=== PATIENT | female | born 1980 ===

== ENCOUNTER 2016-10-11 11:32 | Inpatient (IN) | payer BC ==
[2016-10-11] MEDS ORDERED: Sodium Chloride 0.9% 1,000 ML IV STA ×3 (11:55→18:30)
[2016-10-11 12:26] LABS: BASO # 0.1 K/uL (0.0-0.2); BASO % 0.4 % (0.0-2.0); HEMATOCRIT 38.7 % (34.0-47.0); LYMPH # 1.4 K/uL (1.0-4.3); LYMPH % 8.5 % (20.0-40.0); MEAN CORPUSCULAR HEMOGLOBIN 30.1 pg (27.0-31.0); MEAN CORPUSCULAR HGB CONC 33.9 g/dL (33.0-37.0); MEAN PLATELET VOLUME 8.1 fl (7.2-11.7); MONO # 1.7 K/uL (0.0-0.8); MONO % 10.1 % (0.0-10.0); NEUT # 13.6 K/uL (1.8-7.0); PLATELET COUNT 255 K/uL (130-400); RED CELL DISTRIBUTION WIDTH 13.1 % (11.5-14.5); WHITE BLOOD COUNT 16.8 K/uL (4.8-10.8)
[2016-10-11 12:35] LABS: URINE BACTERIA OCC (<OCC); URINE BILIRUBIN NEGATIVE (NEGATIVE); URINE BLOOD SMALL (NEGATIVE); URINE COLOR AMBER (YELLOW); URINE GLUCOSE (UA) NEG (Normal); URINE KETONE 20 mg/dL (NEGATIVE); URINE LEUKOCYTE ESTERASE MOD Leu/uL (Negative); URINE PROTEIN 100 mg/dL (NEGATIVE); URINE UROBILINOGEN 0.2-1.0 mg/dL (0.2-1.0); WBC URINE 274 /hpf (0-5)
[2016-10-11 12:37] LABS: RBC URINE 4 /hpf (0-3)
[2016-10-11 12:41] LABS: ALKALINE PHOSPHATASE 188 U/L (38-126); ALT/SGPT 109 U/L (9-52); AST/SGOT 70 U/L (14-36); BLOOD UREA NITROGEN 10 mg/dl (7-17); CALCIUM 9.2 mg/dL (8.4-10.2); CARBON DIOXIDE 22 mmol/L (22-30); CHLORIDE 105 mmol/L (98-107); GFR AFRICAN-AMERICAN > 60; GLUCOSE,RANDOM 101 mg/dL (65-105); POTASSIUM 3.5 MMOL/L (3.6-5.0); SODIUM 139 mmol/l (132-148); TOTAL PROTEIN 7.9 G/DL (6.3-8.2)
[2016-10-11 12:42] LABS: PARTIAL THROMBOPLASTIN TIME 35.7 Seconds (25.6-37.1)
[2016-10-11 12:50] LABS: VENOUS BLOOD GAS BASE EXCESS -0.7 mmol/L (0.0-2.0); VENOUS BLOOD GAS PCO2 36 mmHg (40-60); VENOUS BLOOD PH 7.42 (7.32-7.43)
[2016-10-11] MEDS ORDERED: Povidone Iodine Topical 10% Sol ONE (12:50)
[2016-10-11] MEDS ORDERED: Lidocaine 1% Inj (20ml) ONE (13:01)
--- NOTE | 2016-10-11 13:13 | ED PDOC ---
HPI: Fever Fever Onset Was: 10/08/16 Past Medical History Vital Signs: Last Vital Signs Temp 103.5 F H 10/11/16 12:15 Pulse 122 H 10/11/16 11:38 Resp 20 10/11/16 11:38 BP 133/71 10/11/16 11:38 Pulse Ox 99 10/11/16 11:38 - Family History Family History: States: Unknown Family Hx - Immunization History Hx Tetanus Toxoid Vaccination: No Hx Influenza Vaccination: No Hx Pneumococcal Vaccination: No - Home Medications Home Medications: Ambulatory Orders Medication Instructions Recorded Ondansetron ODT [Zofran ODT] 1 odt PO BID PRN #6 odt 09/01/13 Phendimetrazine 35 mg PO TID 09/01/13 Sulfamethoxazole/Trimethoprim 1 tab PO BID #14 tab 09/01/13 [Bactrim 400 mg-80 mg] - Allergies Allergies/Adverse Reactions: Allergies Allergy/AdvReac Type Severity Reaction Status Date / Time No Known Allergies Allergy Verified 10/11/16 11:35 - Laboratory Results Result Diagrams: 10/11/16 12:20 10/11/16 12:20 - ECG O2 Sat by Pulse Oximetry: 99 Disposition - Disposition Forms: [employer] (Welsh)
--- NOTE | 2016-10-11 13:17 | ED PDOC ---
HPI: Headache Time Seen by Provider: 10/11/16 11:46 Chief Complaint (Nursing): Fever Chief Complaint (Provider): Fever History Per: Patient History/Exam Limitations: no limitations Onset/Duration Of Symptoms: Days (x 4) Current Symptoms Are (Timing): Still Present Additional Complaint(s): Nette is a 35 y/o female who presents to the ED complaining of neck pain, headache, and fever, ongoing since Thursday. Seen by PMD and given Naprosyn, without relief. Patient then seen at [facility] on and given shot for pain. Also complaining of low back pain, and blurred vision. Denies any associated nausea or vomiting. PMD: Faraz Childress Past Medical History Reviewed: Historical Data, Nursing Documentation, Vital Signs Vital Signs: Last Vital Signs Temp 103.5 F H 10/11/16 12:15 Pulse 122 H 10/11/16 11:38 Resp 20 10/11/16 11:38 BP 133/71 10/11/16 11:38 Pulse Ox 99 10/11/16 11:38 - Medical History PMH: No Chronic Diseases - Surgical History Other surgeries: Hysterectomy - Family History Family History: States: Unknown Family Hx - Social History Current smoker - smoking cessation education provided: No Alcohol: None Drugs: Denies - Immunization History Hx Tetanus Toxoid Vaccination: No Hx Influenza Vaccination: No Hx Pneumococcal Vaccination: No - Home Medications Home Medications: Ambulatory Orders Medication Instructions Recorded Ondansetron ODT [Zofran ODT] 1 odt PO BID PRN #6 odt 09/01/13 Phendimetrazine 35 mg PO TID 09/01/13 Sulfamethoxazole/Trimethoprim 1 tab PO BID #14 tab 09/01/13 [Bactrim 400 mg-80 mg] - Allergies Allergies/Adverse Reactions: Allergies Allergy/AdvReac Type Severity Reaction Status Date / Time No Known Allergies Allergy Verified 10/11/16 11:35 Review of Systems ROS Statement: Except As Marked, All Systems Reviewed And Found Negative Constitutional: Positive for: Fever Eyes: Positive for: Vision Change (blurred vision) Gastrointestinal: Negative for: Nausea, Vomiting Musculoskeletal: Positive for: Neck Pain, Back Pain (low back pain) Neurological: Positive for: Headache Physical Exam - Reviewed Nursing Documentation Reviewed: Yes Vital Signs Reviewed: Yes - Physical Exam Appears: Positive for: Non-toxic, No Acute Distress Head Exam: Positive for: ATRAUMATIC, NORMOCEPHALIC Skin: Positive for: Normal Color, Warm, Dry Eye Exam: Positive for: EOMI, Normal appearance, PERRL Neck: Positive for: Limited ROM (Neck pain with neck movement) Cardiovascular/Chest: Positive for: Tachycardia (regular rhythm) Respiratory: Positive for: Normal Breath Sounds (Lungs clear). Negative for: Respiratory Distress Gastrointestinal/Abdominal: Positive for: Normal Exam, Soft. Negative for: Tenderness Back: Positive for: Normal Inspection. Negative for: L CVA Tenderness, R CVA Tenderness Extremity: Positive for: Normal ROM. Negative for: Pedal Edema, Deformity Neurologic/Psych: Positive for: Alert, Oriented - Laboratory Results Result Diagrams: 10/11/16 12:20 10/11/16 12:20 - ECG O2 Sat by Pulse Oximetry: 99 (RA) Pulse Ox Interpretation: Normal Medical Decision Making Medical Decision Making: Time: 11:55 Initial Impression: Fever, Headache, Meningitis Initial Plan: --Labs --NS IV 1000 ml at 1000 mls/hr --Morphine 2 mg IV --Acetaminophen 650 mg PO --Vancomycin 1 gm IV --Rocephin 2 gm IV --Zovirax 600 mg IV --Pending CT Head and Lumbar Spine w/o contrast --Patient placed in ED-OBS as of 14:00 Scribe Attestation: Documented by Afshan Warren, acting as a scribe for Vira Donnelly MD Provider Scribe Attestation: All medical record entries made by the Scribe were at my direction and personally dictated by me. I have reviewed the chart and agree that the record accurately reflects my personal performance of the history, physical exam, medical decision making, and the department course for this patient. I have also personally directed, reviewed, and agree with the discharge instructions and disposition. Procedures - Additional Procedures Additional Procedures: lumbar puncture (performed with patient sitting, with minimal difficulty. Used 6cc Lidocaine) ED OBSERVATION Date of observation admission: 10/11/16 Time of observation admission: 14:00 - Observation admission statement Patient is being placed in observation because:: Fever, headache - Progress Note Progress Note: 10/11/16 Time: 14:00 --Patient is resting comfortably. Vital signs stable. Time: 14:22 CT Head: FINDINGS: HEMORRHAGE: No acute parenchymal, subarachnoid or extra-axial hemorrhage. BRAIN: No evidence of large acute infarct. Irregular calcification seen along the superior margin right tentorium bordering the occipito parietal watershed zone nonspecific. Rule out post traumatic or post infectious/ inflammatory sequela. VENTRICLES: No evidence of obstructive hydrocephalus CALVARIUM: There are no acute calvarial fractures. PARANASAL SINUSES: Unremarkable as visualized. No significant inflammatory changes. MASTOID AIR CELLS: Unremarkable as visualized. No inflammatory changes. OTHER FINDINGS: None. IMPRESSION: No acute intracranial hemorrhage. Small irregular nonspecific calcification along the right aspect of the tentorium in the right occipital parietal watershed zone nonspecific ; see above discussion for additional details Time: 14:32 CT Lumbar Spine: FINDINGS: Findings: The current study reveals no evidence of acute compression fractures no retropulsed fragments. Vertebral bodies exhibit normal stature is mild levoscoliosis. Facets normally aligned. Mild disc space narrowing seen at the L3-L4 level more so along the anterior disc margin with small broad-based disc bulge ridge complex that results in flattening of the ventral surface of the thecal sac. Central canal is marginal to adequate. Facet joints are slightly hypertrophic and flavum buckled. Exit foramina appear adequate. At the L4-L5 level, there is mild anterior disc space narrowing with central and bilateral (left larger than right) disc herniation that does result in compression of the ventral surface of the thecal sac centrally and to the left more so than right. Facets are mildly hypertrophic and flavum buckled. Exit foramina appear adequate. At the L5-S1 level, there is small broad-based disc bulge ridge complex which appears to reach but does not significantly compress the ventral surfaces of the exiting extra thecal descending S1 nerve roots. Central canal appears adequate. Facets are mildly hypertrophic. Exit foramina are adequate. At the L2-L3 level, there is also minor anterior disc space narrowing with small asymmetric broad disc bulging of the posterior annulus which results in mild compressive effects along the anterolateral borders of thecal sac right greater than left. Central canal appears adequate. Facets are mildly hypertrophic. Exit foramina are also adequate. Assess some vague infiltration changes seen within the posterior inferior perinephric fat right kidney nonspecific. . Additionally, there appears to be mild dilatation of the proximal right ureter with prominence of the surrounding urothelium Clinical correlation with urinalysis recommended. Multiple bilateral ovarian follicular cysts are present. Impression: No acute compression fractures. Multilevel degenerative spondylosis with disc bulging changes at the L2-L3, L3-L4 and L5-S1 levels. There is also a small disc herniation L4-L5 level ; see above discussion for additional details. Some vague infiltration changes seen in the posterior inferior right-sided perinephric fat mild dilatation of proximal right ureter and prominence of the surrounding urothelium. And Correlation with urinalysis recommended to exclude UTI. Time: 15:00 --Labs reviewed, significant for elevated WBC count and WBC in urine Time: 15:30 --Patient is resting comfortably. Vital signs stable. Time: 16:25 --Patient given 2 mg Morphine IV Time: 17:00 --Patient is resting comfortably. Vital signs stable. Time: 17:00 --Lumbar puncture completed Disposition - Clinical Impression Clinical Impression: SIRS (systemic inflammatory response syndrome), UTI (lower urinary tract infection), Headache, Meningitis - Patient ED Disposition Is Patient to be Admitted: Yes - Disposition Disposition Time: 18:46 Condition: STABLE - Pt Status Changed To: Hospital Disposition Of: Inpatient - Admit Certification Admit to Inpatient:: After my assessment, the patient will require hospitalization for at least two midnights. This is because of the severity of symptoms shown, intensity of services needed, and/or the medical risk in this patient being treated as an outpatient. - POA Present On Arrival: None
--- NOTE | 2016-10-11 14:24 | CT ---
PROCEDURE: CT HEAD WITHOUT CONTRAST. HISTORY: SHEPPARD, neck pain, fever COMPARISON: None available. TECHNIQUE: Axial computed tomography images were obtained through the head/brain without intravenous contrast. Radiation dose: Total exam DLP = 930.1 mGy-cm. This CT exam was performed using one or more of the following dose reduction techniques: Automated exposure control, adjustment of the mA and/or kV according to patient size, and/or use of iterative reconstruction technique. FINDINGS: HEMORRHAGE: No acute parenchymal, subarachnoid or extra-axial hemorrhage. BRAIN: No evidence of large acute infarct. Irregular calcification seen along the superior margin right tentorium bordering the occipito parietal watershed zone nonspecific. Rule out post traumatic or post infectious/ inflammatory sequela. VENTRICLES: No evidence of obstructive hydrocephalus CALVARIUM: There are no acute calvarial fractures. PARANASAL SINUSES: Unremarkable as visualized. No significant inflammatory changes. MASTOID AIR CELLS: Unremarkable as visualized. No inflammatory changes. OTHER FINDINGS: None. IMPRESSION: No acute intracranial hemorrhage. Small irregular nonspecific calcification along the right aspect of the tentorium in the right occipital parietal watershed zone nonspecific ; see above discussion for additional details
[2016-10-11 14:35] LABS: NEUTROPHIL 78 % (42-75); TOTAL CELLS COUNTED 100
--- NOTE | 2016-10-11 14:35 | CT ---
PROCEDURE: CT scan lumbar spine 10/11/2016 HISTORY: Low back pain, neck pain, fever COMPARISON: No prior TECHNIQUE: Contiguous helical/ transaxial sections were obtained of the lumbar spine without the use of intravenous contrast. Coronal and sagittal reformatted images were created and reviewed. Radiation dose: Total exam DLP = 1248.56 mGy-cm. This CT exam was performed using one or more of the following dose reduction techniques: Automated exposure control, adjustment of the mA and/or kV according to patient size, and/or use of iterative reconstruction technique. . FINDINGS: Findings: The current study reveals no evidence of acute compression fractures no retropulsed fragments. Vertebral bodies exhibit normal stature is mild levoscoliosis. Facets normally aligned. Mild disc space narrowing seen at the L3-L4 level more so along the anterior disc margin with small broad-based disc bulge ridge complex that results in flattening of the ventral surface of the thecal sac. Central canal is marginal to adequate. Facet joints are slightly hypertrophic and flavum buckled. Exit foramina appear adequate. At the L4-L5 level, there is mild anterior disc space narrowing with central and bilateral (left larger than right) disc herniation that does result in compression of the ventral surface of the thecal sac centrally and to the left more so than right. Facets are mildly hypertrophic and flavum buckled. Exit foramina appear adequate. At the L5-S1 level, there is small broad-based disc bulge ridge complex which appears to reach but does not significantly compress the ventral surfaces of the exiting extra thecal descending S1 nerve roots. Central canal appears adequate. Facets are mildly hypertrophic. Exit foramina are adequate. At the L2-L3 level, there is also minor anterior disc space narrowing with small asymmetric broad disc bulging of the posterior annulus which results in mild compressive effects along the anterolateral borders of thecal sac right greater than left. Central canal appears adequate. Facets are mildly hypertrophic. Exit foramina are also adequate. Assess some vague infiltration changes seen within the posterior inferior perinephric fat right kidney nonspecific. . Additionally, there appears to be mild dilatation of the proximal right ureter with prominence of the surrounding urothelium Clinical correlation with urinalysis recommended. Multiple bilateral ovarian follicular cysts are present. Impression: No acute compression fractures. Multilevel degenerative spondylosis with disc bulging changes at the L2-L3, L3-L4 and L5-S1 levels. There is also a small disc herniation L4-L5 level ; see above discussion for additional details. Some vague infiltration changes seen in the posterior inferior right-sided perinephric fat mild dilatation of proximal right ureter and prominence of the surrounding urothelium. And Correlation with urinalysis recommended to exclude UTI.
[2016-10-11 14:36] LABS: LARGE PLATELETS PRESENT
[2016-10-11 17:21] LABS: FLUID TYPE SPINAL FLUID
[2016-10-11 18:43] LABS: CSF NEUTROPHIL 0 % (0-0)
[2016-10-11] MEDS: Sodium Chloride 0.9% 1,000 ML IV SCH (23:31)
[2016-10-12 08:14] LABS: HEMATOCRIT 30.4 % (34.0-47.0); MEAN CORPUSCULAR HEMOGLOBIN 30.5 pg (27.0-31.0); MEAN CORPUSCULAR HGB CONC 34.3 g/dL (33.0-37.0); RED CELL DISTRIBUTION WIDTH 12.8 % (11.5-14.5); WHITE BLOOD COUNT 12.1 K/uL (4.8-10.8)
[2016-10-12] MEDS: Sodium Chloride 0.9% 1,000 ML IV SCH ×2 (08:15→22:12)
[2016-10-12 08:43] LABS: ALB/GLOB RATIO 0.9 (1.0-2.1); ALKALINE PHOSPHATASE 130 U/L (38-126); ALT/SGPT 76 U/L (9-52); AST/SGOT 41 U/L (14-36); BILIRUBIN,TOTAL 0.6 mg/dl (0.2-1.3); BLOOD UREA NITROGEN 9 mg/dl (7-17); CALCIUM 7.4 mg/dL (8.4-10.2); CARBON DIOXIDE 19 mmol/L (22-30); CHLORIDE 111 mmol/L (98-107); GFR AFRICAN-AMERICAN > 60; GLUCOSE,RANDOM 73 mg/dL (65-105); POTASSIUM 3.3 MMOL/L (3.6-5.0); SODIUM 140 mmol/l (132-148); TOTAL PROTEIN 5.8 G/DL (6.3-8.2)
[2016-10-12] MEDS: Pantoprazole 40 mg EC Tab PO SCH (09:08)
[2016-10-12] MEDS: Acyclovir 500 MG in Sodium Chloride 0.9% 100 ML IVPB SCH (10:00)
[2016-10-12] MEDS: cefTRIAXone 2 GM in Sodium Chloride 0.9% 100 ML IVPB SCH (10:00)
--- NOTE | 2016-10-12 11:23 | CP.PCM.HP ---
History of Present Illness - History of Present Illness History of Present Illness: this is a 35 y/o female admitted for low grade fever headache and neck pains. Past Patient History - Past Medical History & Family History Past Medical History?: No - Past Social History Smoking Status: Never Smoked - CARDIAC Hx Cardiac Disorders: No - PULMONARY Hx Respiratory Disorders: No - NEUROLOGICAL Hx Neurological Disorder: No - HEENT Hx HEENT Problems: No - RENAL Hx Chronic Kidney Disease: No - ENDOCRINE/METABOLIC Hx Endocrine Disorders: No - HEMATOLOGICAL/ONCOLOGICAL Hx Blood Disorders: No - INTEGUMENTARY Hx Dermatological Problems: No - MUSCULOSKELETAL/RHEUMATOLOGICAL Hx Falls: No - GENITOURINARY/GYNECOLOGICAL Hx Genitourinary Disorders: No - PSYCHIATRIC Hx Substance Use: No - SURGICAL HISTORY Hx Hysterectomy: Yes - ANESTHESIA Hx Anesthesia: Yes Hx Anesthesia Reactions: No Meds Allergies/Adverse Reactions: Allergies Allergy/AdvReac Type Severity Reaction Status Date / Time No Known Allergies Allergy Verified 10/11/16 11:35 Results - Vital Signs Recent Vital Signs: Last Vital Signs Temp 100.7 F H 10/12/16 08:57 Pulse 98 H 10/12/16 08:57 Resp 18 10/12/16 08:57 BP 103/71 10/12/16 08:57 Pulse Ox 99 10/12/16 08:57 - Labs Result Diagrams: 10/12/16 06:00 10/12/16 06:00 Labs: Laboratory Results - last 24 hr 10/12/16 10/12/16 06:00 06:00 WBC 12.1 H RBC 3.42 L Hgb 10.4 L D Hct 30.4 L MCV 89.0 MCH 30.5 MCHC 34.3 RDW 12.8 Plt Count 212 Sodium 140 Potassium 3.3 L Chloride 111 H Carbon Dioxide 19 L Anion Gap 13 BUN 9 Creatinine 0.7 Est GFR ( Amer) > 60 Est GFR (Non-Af Amer) > 60 Random Glucose 73 Calcium 7.4 L Total Bilirubin 0.6 AST 41 H D ALT 76 H D Alkaline Phosphatase 130 H D Total Protein 5.8 L Albumin 2.7 L D Globulin 3.1 Albumin/Globulin Ratio 0.9 L
[2016-10-12] MEDS ORDERED: Potassium Chloride 20 mEq ER Tab PO ONE (11:55)
--- NOTE | 2016-10-12 15:00 | CP.PCM.PN ---
Subjective - Date & Time of Evaluation Date of Evaluation: 10/12/16 Time of Evaluation: 15:03 - Subjective Subjective: I D NOTE PATIENT EXAMINED, CHART REVIEWED AWAIT LABS CONTINUE PRESENT RX Objective - Vital Signs/Intake and Output Vital Signs (last 24 hours): Temp Pulse Resp BP Pulse Ox 97.4 F L 101 H 18 100/68 98 10/12/16 13:12 10/12/16 13:12 10/12/16 13:12 10/12/16 13:12 10/12/16 13:12 Intake and Output: 10/12/16 10/12/16 06:59 18:59 Intake Total 700 Balance 700 - Medications Medications: Current Medications Ceftriaxone Sodium 2 gm/ (Sodium Chloride) 100 mls @ 100 mls/hr IVPB DAILY [facility] Last Admin: 10/12/16 10:00 Dose: 100 mls/hr Vancomycin HCl 1 gm/ Sodium (Chloride) 250 mls @ 166.667 mls/hr IVPB DAILY [facility] Last Admin: 10/12/16 09:00 Dose: 166.667 mls/hr Acyclovir 500 mg/ Sodium (Chloride) 100 mls @ 100 mls/hr IVPB DAILY [facility] Last Admin: 10/12/16 10:00 Dose: 100 mls/hr Sodium Chloride (Sodium Chloride 0.9%) 1,000 mls @ 100 mls/hr IV .Q10H [facility] Stop: 10/12/16 22:15 Last Admin: 10/12/16 08:15 Dose: 100 mls/hr Ibuprofen (Motrin Tab) 600 mg PO Q6 PRN PRN Reason: Headache Last Admin: 10/12/16 10:54 Dose: 600 mg Pantoprazole Sodium (Protonix Ec Tab) 40 mg PO DAILY [facility] Last Admin: 10/12/16 09:08 Dose: 40 mg - Labs Labs: 10/12/16 06:00 10/12/16 06:00 PT 12.9 Seconds (9.8-13.1) 10/11/16 12:20 INR 1.3 (0.9-1.2) H 10/11/16 12:20 APTT 35.7 Seconds (25.6-37.1) 10/11/16 12:20
[2016-10-13 07:09] LABS: BASO # 0.1 K/uL (0.0-0.2); BASO % 0.7 % (0.0-2.0); EOS # 0.1 K/uL (0.0-0.7); EOS % 0.9 % (0.0-4.0); HEMATOCRIT 28.2 % (34.0-47.0); LYMPH # 1.9 K/uL (1.0-4.3); LYMPH % 22.1 % (20.0-40.0); MEAN CELL VOLUME 88.5 fl (81.0-99.0); MEAN CORPUSCULAR HEMOGLOBIN 29.6 pg (27.0-31.0); MEAN CORPUSCULAR HGB CONC 33.4 g/dL (33.0-37.0); MEAN PLATELET VOLUME 8.3 fl (7.2-11.7); MONO % 11.5 % (0.0-10.0); NEUT # 5.6 K/uL (1.8-7.0); NEUT % 64.8 % (50.0-75.0); RED CELL DISTRIBUTION WIDTH 13.3 % (11.5-14.5); WHITE BLOOD COUNT 8.7 K/uL (4.8-10.8)
[2016-10-13 07:34] LABS: ALB/GLOB RATIO 0.9 (1.0-2.1); ALKALINE PHOSPHATASE 166 U/L (38-126); ALT/SGPT 85 U/L (9-52); AST/SGOT 65 U/L (14-36); BILIRUBIN,TOTAL 0.3 mg/dl (0.2-1.3); BLOOD UREA NITROGEN 5 mg/dl (7-17); CALCIUM 7.9 mg/dL (8.4-10.2); CARBON DIOXIDE 22 mmol/L (22-30); CHLORIDE 112 mmol/L (98-107); GFR AFRICAN-AMERICAN > 60; GLUCOSE,RANDOM 93 mg/dL (65-105); POTASSIUM 3.2 MMOL/L (3.6-5.0); SODIUM 141 mmol/l (132-148); TOTAL PROTEIN 5.8 G/DL (6.3-8.2)
[2016-10-13] MEDS: cefTRIAXone 2 GM in Sodium Chloride 0.9% 100 ML IVPB SCH (09:10)
[2016-10-13] MEDS: Pantoprazole 40 mg EC Tab PO SCH (09:10)
[2016-10-13] MEDS: Acyclovir 500 MG in Sodium Chloride 0.9% 100 ML IVPB SCH (09:12)
[2016-10-13 10:36] LABS: IRON 11 ug/dL (37-170)
[2016-10-13 10:38] LABS: HEPATITIS A TOTAL ANTIBODY POS (NEGATIVE)
[2016-10-13] MEDS: Potassium Chloride 20 mEq ER Tab PO SCH ×2 (12:59→17:05)
[2016-10-13] MEDS ORDERED: Sodium Chloride 0.9% 50 ML IV ONE (13:03)
[2016-10-13] MEDS ORDERED: Gadodiamide 287 MG/ML VIAL (15ML) IV ONE (13:03)
--- NOTE | 2016-10-13 13:52 | CON ---
INFECTIOUS DISEASE CONSULTATION DATE: LOCATION: The patient is in room 411 [address] HISTORY OF PRESENT ILLNESS: The patient is a 35-year-old female who presents with a 5-day history of headache, neck pain, and fever, which is approximately for the last 4 days. She was seen in the emergency room in another hospital and was given Naprosyn and did not have any relief. She was given a shot for pain also on the ER pt day of admission. Complains also of low back pain and blurred vision. She does not have any nausea, vomiting, or any diarrhea. She states she does not have any chills, but through continued discussion, did give history of some shaking PHYSICAL EXAMINATION GENERAL: She is alert, cooperative, and oriented to time and place. Had LP done in the emergency room and all the results are pending. HEENT: Has some photophobia. NECK: Supple. LUNGS: Clear. HEART: Regular sinus rhythm. ABDOMEN: Soft, positive bowel sounds. No organomegaly. EXTREMITIES: Within normal limits. NEUROLOGIC: No neurological symptoms of encephalitis and/or meningitis. PLAN: At the present time, she is on vancomycin 1 g IV piggy bag q.12 hours, Rocephin 2 g IV piggy bag q. 24 hours, and Celebrex 500 mg IV piggy bag q. 8 hours. At the present time, we will continue IV antibiotics and await the results of the labs. In addition, I have ordered blood, urine, spinal fluid bacterial antigens. Reno Strong MD MTDD
--- NOTE | 2016-10-13 15:25 | US ---
HISTORY: abnormal liver enzymes COMPARISON: None. TECHNIQUE: Sonographic evaluation of the abdomen. FINDINGS: LIVER: Measures 14 cm. Normal echogenicity of the liver parenchyma. No mass. No intrahepatic bile duct dilatation. GALLBLADDER: Unremarkable. No gallstones. COMMON BILE DUCT: Measures 3.8 mm. No stones. No dilatation. PANCREAS: Unremarkable as visualized. No mass. No ductal dilatation. RIGHT KIDNEY: Measures 11.4 x 6 x 4.9cm. Normal echogenicity. No calculus, mass, or hydronephrosis. LEFT KIDNEY: Measures 12.3 x 5.3 x 4.2cm. Normal echogenicity. No calculus, mass, or hydronephrosis. SPLEEN: Normal in size and contour. No mass. AORTA: No aneurysmal dilatation. IVC: Unremarkable. OTHER FINDINGS: None. IMPRESSION: Trace of fluid seen adjacent to the gallbladder. No ultrasound evidence of cholelithiasis or cholecystitis.
--- NOTE | 2016-10-13 15:37 | MRI ---
PROCEDURE: MRI BRAIN WITH AND WITHOUT CONTRAST HISTORY: R occipital calcification COMPARISON: Head CT 10/11/2016 TECHNIQUE: Multiplanar, multisequence MR images of the brain were obtained with and without intravenous contrast enhancement. FINDINGS: HEMORRHAGE: None DWI: No evidence of an acute or early subacute infarction. BRAIN PARENCHYMA: No mass,mass effect or edema. Intrinsic signal intensity in the thrasher and white matter structures above or below the tentorium appear within normal limits although a small calcification is appreciate corresponding to the radiodensity in the prior head CT at the right side of the tentorium. No related enhancement is not identified here and a small meningioma is not considered. ENHANCEMENT: No abnormal intracranial enhancement. VENTRICLES: Unremarkable. No hydrocephalus. CRANIUM: Unremarkable. ORBITS: Grossly unremarkable. PARANASAL SINUSES/MASTOIDS: Clear VASCULAR SYSTEM: Skull base flow voids intact. OTHER FINDINGS: None . IMPRESSION: 1. A small 7 mm calcification is appreciated the right-sided tentorium without enhancement. 2. Remainder the brain MR examination is within normal limits otherwise. 3. No abnormal intracranial enhancement.
--- NOTE | 2016-10-13 16:50 | CON ---
DATE: 10/11/2016 NEUROLOGY CONSULTATION CHIEF COMPLIANT: Headaches and neck tightness. HISTORY OF PRESENT ILLNESS: A 35-year-old woman with no significant past medical history except for hysterectomy, who had complained of neck pain, neck tightness with radiating to the back of the head causing diffuse frontal pressure headaches, had initially ongoing fever low grade and had lumbar puncture in the ER, which showed no evidence of any forms of meningitis. She had [id number] leukocyte esterase indicating possible underlying urinary tract infection, which has been treated. She is on Bactrim. Apparently, she underwent CAT scan of the head, which showed some calcifications of right occipital-parietal region, which on the MRI was visualized, which the MRI of the brain showed no acute intracranial abnormalities or no enhancement of the meninges. She is currently moving all extremities, following commands, has mild frontal pressure headache at this time and some neck tightness, but no meningeal signs. PAST MEDICAL HISTORY: Non significant. ALLERGIES: NO KNOWN DRUG ALLERGIES. SOCIAL HISTORY: No illicit drug use, smoking or ETOH abuse. FAMILY HISTORY: Noncontributory. REVIEW OF SYSTEMS: A 14-point review of system is negative except for the HPI. MEDICATIONS: Reviewed by nurse per reconciliation sheet. PHYSICAL EXAMINATION: VITAL SIGNS: Temperature 99.4, pulse rate of 80, blood pressure 105/73, respiratory rate of 18, and oxygen saturation 99% by room air. GENERAL: The patient is sitting up in the chair, in no acute distress. HEENT: Head is atraumatic, normocephalic. PERRLA. Extraocular muscles intact. NECK: Supple. No JVD. No adenopathy noted. LUNGS: Clear to auscultation. No adventitious sounds. HEART: S1 and S2, normal rate and rhythm. No murmur, rubs, or gallops. ABDOMEN: Soft, nontender, nondistended. Bowel sounds present. EXTREMITIES: No clubbing. No cyanosis. Peripheral pulses 2+ felt bilaterally. NEUROLOGIC: The patient is alert and oriented to person, place, month, and year. Speech is fluent without any errors. Cranial nerves II through XII are intact. Motor exam: Moves all extremities equally. Toes are downgoing bilaterally. Sensory exam: Light touch, pinprick, proprioception, and vibration is intact. DTRs are 2+ throughout. Gait is normal. Romberg is negative. MUSCULOSKELETAL: Cervical muscle tightness, but no meningeal signs. LABORATORY DATA: Sodium is 141, potassium 3.2, chloride 112, carbon dioxide 22, BUN of 5, creatinine 0.6, random glucose 93. ASSESSMENT AND PLAN: A 35-year-old woman with no significant past medical history who came in with neck tightness with radiating to the back of the head causing diffuse frontal pressure headaches with occasional nausea and some low-grade fevers. She is status post lumbar puncture, which showed no evidence of any forms of meningitis. MRI of the brain showed no acute intracranial abnormality. At this time, I feel like her headaches are more of cervicogenic/tension-based with migraine component. RECOMMEND: 1. Fioricet one tab p.o. q. 4 hours p.r.n. acute onset of headache. 2. Start with low dose gabapentin 100 mg p.o. at bedtime, which will help with reducing the tension headaches. 3. Recommend hydration since she is slightly dehydrated. 4. Consider cyclobenzaprine 10 mg p.o. at bedtime p.r.n. for neck tightness and continue current present medical management. Thank you for this consult. Neurologically stable. Tutu Drew MD
--- NOTE | 2016-10-13 17:31 | CP.PCM.PN ---
Subjective - Date & Time of Evaluation Date of Evaluation: 10/13/16 Time of Evaluation: 17:30 - Subjective Subjective: I D NOTE AFEBRILE FEELING BETTER WBC HAS IMPROVED HAS UTI LABS FOR NEUROSEPSIS SO FAR ALL WNL HAVE DISCONTINUED VANCOMYCIN DISCUSSED c LFTs STILL ELEVATED US IS WNL Objective - Vital Signs/Intake and Output Vital Signs (last 24 hours): Temp Pulse Resp BP Pulse Ox 98.4 F 73 16 99/66 L 98 10/13/16 16:01 10/13/16 16:01 10/13/16 16:01 10/13/16 16:01 10/13/16 16:01 Intake and Output: 10/13/16 10/13/16 06:59 18:59 Intake Total 2049 Balance 2049 - Medications Medications: Current Medications Acetaminophen/Butalbital/Caffeine (Fioricet) 1 tab PO Q4 PRN PRN Reason: Headache Ferrous Sulfate (Feosol) 325 mg PO BID [facility] Last Admin: 10/13/16 17:05 Dose: 325 mg Ceftriaxone Sodium 2 gm/ (Sodium Chloride) 100 mls @ 100 mls/hr IVPB DAILY [facility] Last Admin: 10/13/16 09:10 Dose: 100 mls/hr Vancomycin HCl 1 gm/ Sodium (Chloride) 250 mls @ 166.667 mls/hr IVPB DAILY [facility] Last Admin: 10/13/16 09:11 Dose: 166.667 mls/hr Acyclovir 500 mg/ Sodium (Chloride) 100 mls @ 100 mls/hr IVPB DAILY [facility] Last Admin: 10/13/16 09:12 Dose: 100 mls/hr Ibuprofen (Motrin Tab) 600 mg PO Q6 PRN PRN Reason: Headache Last Admin: 10/13/16 10:49 Dose: 600 mg Pantoprazole Sodium (Protonix Ec Tab) 40 mg PO DAILY [facility] Last Admin: 10/13/16 09:10 Dose: 40 mg Potassium Chloride (K-Dur 20 Meq Er Tab) 20 meq PO TID [facility] Last Admin: 10/13/16 17:05 Dose: 20 meq - Labs Labs: 10/13/16 05:15 10/13/16 05:15 PT 12.9 Seconds (9.8-13.1) 10/11/16 12:20 INR 1.3 (0.9-1.2) H 10/11/16 12:20 APTT 35.7 Seconds (25.6-37.1) 10/11/16 12:20
[2016-10-13 18:26] LABS: H INFLUENZAE B NEGATIVE (NEGATIVE); N MENINGITIS ACY/W135 NEGATIVE (NEGATIVE); N MENINGITIS B/ECOLI K1 NEGATIVE (NEGATIVE)
[2016-10-13] MEDS: Apap-Butalbital-Caffeine 325-50-40mg Tab PO PRN (21:07)
[2016-10-14 03:23] LABS: HAV AB (IGM) Nonreactive (Nonreactive)
[2016-10-14 06:31] LABS: HEMATOCRIT 30.6 % (34.0-47.0); MEAN CELL VOLUME 87.7 fl (81.0-99.0); MEAN CORPUSCULAR HGB CONC 34.2 g/dL (33.0-37.0); RED CELL DISTRIBUTION WIDTH 13.5 % (11.5-14.5); WHITE BLOOD COUNT 7.9 K/uL (4.8-10.8)
[2016-10-14 06:43] LABS: ALB/GLOB RATIO 0.9 (1.0-2.1); ALKALINE PHOSPHATASE 154 U/L (38-126); ALT/SGPT 84 U/L (9-52); AST/SGOT 63 U/L (14-36); BILIRUBIN,TOTAL 0.3 mg/dl (0.2-1.3); BLOOD UREA NITROGEN 5 mg/dl (7-17); CALCIUM 8.5 mg/dL (8.4-10.2); CARBON DIOXIDE 22 mmol/L (22-30); CHLORIDE 109 mmol/L (98-107); GFR AFRICAN-AMERICAN > 60; GLUCOSE,RANDOM 93 mg/dL (65-105); POTASSIUM 3.5 MMOL/L (3.6-5.0); SODIUM 141 mmol/l (132-148); TOTAL PROTEIN 6.3 G/DL (6.3-8.2)
[2016-10-14] MEDS: Potassium Chloride 20 mEq ER Tab PO SCH ×3 (08:41→16:28)
[2016-10-14] MEDS: Apap-Butalbital-Caffeine 325-50-40mg Tab PO PRN ×3 (08:41→23:04)
[2016-10-14] MEDS: Pantoprazole 40 mg EC Tab PO SCH (08:42)
[2016-10-14] MEDS: cefTRIAXone 2 GM in Sodium Chloride 0.9% 100 ML IVPB SCH (08:42)
[2016-10-14] MEDS: Acyclovir 500 MG in Sodium Chloride 0.9% 100 ML IVPB SCH (08:44)
--- NOTE | 2016-10-14 11:18 | CP.PCM.PN ---
Subjective - Date & Time of Evaluation Date of Evaluation: 10/14/16 Time of Evaluation: 08:55 - Subjective Subjective: patient seen and examined with attending headache controlled with meds afebrile, VS stable WNL Denies Cp, SOB, N/V, dizziness, blurry vision, abdominal pain Objective - Vital Signs/Intake and Output Vital Signs (last 24 hours): Temp Pulse Resp BP Pulse Ox 99 F 79 18 103/70 97 10/14/16 08:06 10/14/16 08:06 10/14/16 08:06 10/14/16 08:06 10/14/16 08:06 - Medications Medications: Current Medications Acetaminophen/Butalbital/Caffeine (Fioricet) 1 tab PO Q4 PRN PRN Reason: Headache Last Admin: 10/14/16 08:41 Dose: 1 tab Ferrous Sulfate (Feosol) 325 mg PO BID [facility] Last Admin: 10/14/16 08:42 Dose: 325 mg Ceftriaxone Sodium 2 gm/ (Sodium Chloride) 100 mls @ 100 mls/hr IVPB DAILY [facility] Last Admin: 10/14/16 08:42 Dose: 100 mls/hr Acyclovir 500 mg/ Sodium (Chloride) 100 mls @ 100 mls/hr IVPB DAILY [facility] Last Admin: 10/14/16 08:44 Dose: 100 mls/hr Ibuprofen (Motrin Tab) 600 mg PO Q6 PRN PRN Reason: Headache Last Admin: 10/13/16 10:49 Dose: 600 mg Pantoprazole Sodium (Protonix Ec Tab) 40 mg PO DAILY [facility] Last Admin: 10/14/16 08:42 Dose: 40 mg Potassium Chloride (K-Dur 20 Meq Er Tab) 20 meq PO TID [facility] Last Admin: 10/14/16 08:41 Dose: 20 meq - Labs Labs: 10/14/16 05:05 10/14/16 05:05 PT 12.9 Seconds (9.8-13.1) 10/11/16 12:20 INR 1.3 (0.9-1.2) H 10/11/16 12:20 APTT 35.7 Seconds (25.6-37.1) 10/11/16 12:20 - Constitutional Appears: No Acute Distress - ENT Exam ENT Exam: Mucous Membranes Moist - Respiratory Exam Respiratory Exam: Clear to Ausculation Bilateral, NORMAL BREATHING PATTERN - Cardiovascular Exam Cardiovascular Exam: REGULAR RHYTHM, +S1, +S2 - GI/Abdominal Exam GI & Abdominal Exam: Soft, Normal Bowel Sounds. absent: Distended, Guarding, Rigid, Tenderness - Extremities Exam Extremities Exam: Normal Inspection. absent: Calf Tenderness, Pedal Edema - Neurological Exam Neurological Exam: Alert, Awake, Oriented x3 Additional comments: no nuchal rigidity noted - Psychiatric Exam Psychiatric exam: Normal Affect - Skin Skin Exam: Dry, Intact, Normal Color Assessment and Plan - Assessment and Plan (Free Text) Plan: Headache improved s/p LP which showed no evidence of meningitis as per neurologist, her hedaches are cervicogenic/tension-based with migraine component f/u Neurology recommendations consider DC tomorrow if stable and clear by neurology
[2016-10-14 12:16] LABS: H INFLUENZAE B NEGATIVE (NEGATIVE); N MENINGITIS ACY/W135 NEGATIVE (NEGATIVE); N MENINGITIS B/ECOLI K1 NEGATIVE (NEGATIVE)
[2016-10-14 13:08] LABS: N MENINGITIS ACY/W135 NEGATIVE (NEGATIVE); N MENINGITIS B/ECOLI K1 NEGATIVE (NEGATIVE)
[2016-10-14 13:09] LABS: H INFLUENZAE B NEGATIVE (NEGATIVE)
[2016-10-14 13:26] LABS: FOLATE 6.9 ng/mL
--- NOTE | 2016-10-14 17:50 | CP.PCM.PN ---
Subjective - Date & Time of Evaluation Date of Evaluation: 10/14/16 Time of Evaluation: 17:43 - Subjective Subjective: I D NOTE REVIEWED LABS ONCE AGAIN LFTs are up have ordered monospot as she appears to have UTI along c possible viral syndrome might consider discharging on valtrex and ceftin r Objective - Vital Signs/Intake and Output Vital Signs (last 24 hours): Temp Pulse Resp BP Pulse Ox 98.4 F 68 14 105/77 99 10/14/16 16:23 10/14/16 16:23 10/14/16 16:23 10/14/16 16:23 10/14/16 16:23 - Medications Medications: Current Medications Acetaminophen/Butalbital/Caffeine (Fioricet) 1 tab PO Q4 PRN PRN Reason: Headache Last Admin: 10/14/16 16:27 Dose: 1 tab Ferrous Sulfate (Feosol) 325 mg PO BID [facility] Last Admin: 10/14/16 16:28 Dose: 325 mg Gabapentin (Neurontin) 100 mg PO HS [facility] Ceftriaxone Sodium 2 gm/ (Sodium Chloride) 100 mls @ 100 mls/hr IVPB DAILY [facility] Last Admin: 10/14/16 08:42 Dose: 100 mls/hr Ibuprofen (Motrin Tab) 600 mg PO Q6 PRN PRN Reason: Headache Last Admin: 10/13/16 10:49 Dose: 600 mg Pantoprazole Sodium (Protonix Ec Tab) 40 mg PO DAILY [facility] Last Admin: 10/14/16 08:42 Dose: 40 mg Potassium Chloride (K-Dur 20 Meq Er Tab) 20 meq PO TID [facility] Last Admin: 10/14/16 16:28 Dose: 20 meq - Labs Labs: 10/14/16 05:05 10/14/16 05:05 PT 12.9 Seconds (9.8-13.1) 10/11/16 12:20 INR 1.3 (0.9-1.2) H 10/11/16 12:20 APTT 35.7 Seconds (25.6-37.1) 10/11/16 12:20
[2016-10-14 20:29] VITALS: O2SAT 98
[2016-10-15 06:28] LABS: HEMATOCRIT 33.1 % (34.0-47.0); MEAN CELL VOLUME 87.3 fl (81.0-99.0); MEAN CORPUSCULAR HEMOGLOBIN 29.8 pg (27.0-31.0); MEAN CORPUSCULAR HGB CONC 34.1 g/dL (33.0-37.0); RED CELL DISTRIBUTION WIDTH 13.1 % (11.5-14.5); WHITE BLOOD COUNT 5.9 K/uL (4.8-10.8)
[2016-10-15 06:36] LABS: BLOOD UREA NITROGEN 12 mg/dl (7-17); CALCIUM 8.8 mg/dL (8.4-10.2); CARBON DIOXIDE 24 mmol/L (22-30); CHLORIDE 106 mmol/L (98-107); GFR AFRICAN-AMERICAN > 60; GLUCOSE,RANDOM 92 mg/dL (65-105); SODIUM 141 mmol/l (132-148)
[2016-10-15 08:03] VITALS: RESP 18
[2016-10-15] MEDS: Potassium Chloride 20 mEq ER Tab PO SCH ×2 (08:59→12:29)
[2016-10-15] MEDS: Pantoprazole 40 mg EC Tab PO SCH (08:59)
[2016-10-15] MEDS: cefTRIAXone 2 GM in Sodium Chloride 0.9% 100 ML IVPB SCH (09:00)
--- NOTE | 2016-10-15 10:00 | CP.PCM.PN ---
Subjective - Date & Time of Evaluation Date of Evaluation: 10/13/16 Time of Evaluation: 09:30 - Subjective Subjective: Patient still with headaches but less Objective - Vital Signs/Intake and Output Vital Signs (last 24 hours): Temp Pulse Resp BP Pulse Ox 98.2 F 65 18 103/71 98 10/15/16 08:03 10/15/16 08:03 10/15/16 08:03 10/15/16 08:03 10/15/16 08:03 - Medications Medications: Current Medications Acetaminophen/Butalbital/Caffeine (Fioricet) 1 tab PO Q4 PRN PRN Reason: Headache Last Admin: 10/14/16 23:04 Dose: 1 tab Ferrous Sulfate (Feosol) 325 mg PO BID [facility] Last Admin: 10/15/16 08:59 Dose: 325 mg Gabapentin (Neurontin) 100 mg PO HS [facility] Last Admin: 10/14/16 21:24 Dose: 100 mg Ceftriaxone Sodium 2 gm/ (Sodium Chloride) 100 mls @ 100 mls/hr IVPB DAILY [facility] Last Admin: 10/15/16 09:00 Dose: 100 mls/hr Ibuprofen (Motrin Tab) 600 mg PO Q6 PRN PRN Reason: Headache Last Admin: 10/13/16 10:49 Dose: 600 mg Pantoprazole Sodium (Protonix Ec Tab) 40 mg PO DAILY [facility] Last Admin: 10/15/16 08:59 Dose: 40 mg Potassium Chloride (K-Dur 20 Meq Er Tab) 20 meq PO TID [facility] Last Admin: 10/15/16 08:59 Dose: 20 meq - Labs Labs: 10/15/16 05:15 10/15/16 05:15 PT 12.9 Seconds (9.8-13.1) 10/11/16 12:20 INR 1.3 (0.9-1.2) H 10/11/16 12:20 APTT 35.7 Seconds (25.6-37.1) 10/11/16 12:20
[2016-10-15] MEDS: Apap-Butalbital-Caffeine 325-50-40mg Tab PO PRN (11:44)
[2016-10-15 12:05] VITALS: BP 98/68; PULSE 70; TEMP 98.6
--- NOTE | 2016-10-15 12:26 | CP.PCM.DIS ---
Provider - Provider Date of Admission: 10/11/16 18:41 Attending physician: Faraz Childress MD Consults: Neurology: Dr. Hay ID: Dr. Strong Time Spent in preparation of Discharge (in minutes): 30 Diagnosis - Discharge Diagnosis (1) Headache Status: Acute Comment: improved during admission. Neurology was consulted. Meningitis work up was negative. CSF culture showed no growth after 2 days. Headaches most likely cervicogenic-tension based with migraine component. Satrted on Gabapentin 100 mg PO HS and Fioricet PRN as per Neuro. f/u with PMD in 1 week (2) UTI (lower urinary tract infection) Status: Acute Comment: UTI with sensitive E-coli. c/w ceftin PO BID x 7 days (3) Viral infection Status: Acute Comment: improving. c/w valtrex PO x 7 days as per ID recommendations Hospital Course - Lab Results Lab Results: Most Recent Lab Values WBC 5.9 K/uL (4.8-10.8) 10/15/16 05:15 RBC 3.79 Mil/uL (3.80-5.20) L 10/15/16 05:15 Hgb 11.3 g/dL (12.0-16.0) L 10/15/16 05:15 Hct 33.1 % (34.0-47.0) L 10/15/16 05:15 MCV 87.3 fl (81.0-99.0) 10/15/16 05:15 MCH 29.8 pg (27.0-31.0) 10/15/16 05:15 MCHC 34.1 g/dL (33.0-37.0) 10/15/16 05:15 RDW 13.1 % (11.5-14.5) 10/15/16 05:15 Plt Count 323 K/uL (130-400) 10/15/16 05:15 MPV 8.3 fl (7.2-11.7) 10/13/16 05:15 Neut % (Auto) 64.8 % (50.0-75.0) 10/13/16 05:15 Lymph % (Auto) 22.1 % (20.0-40.0) 10/13/16 05:15 Crane % (Auto) 11.5 % (0.0-10.0) H 10/13/16 05:15 Eos % (Auto) 0.9 % (0.0-4.0) 10/13/16 05:15 Baso % (Auto) 0.7 % (0.0-2.0) 10/13/16 05:15 Neut # 5.6 K/uL (1.8-7.0) 10/13/16 05:15 Lymph # 1.9 K/uL (1.0-4.3) 10/13/16 05:15 Crane # 1.0 K/uL (0.0-0.8) H 10/13/16 05:15 Eos # 0.1 K/uL (0.0-0.7) 10/13/16 05:15 Baso # 0.1 K/uL (0.0-0.2) 10/13/16 05:15 Neutrophils % (Manual) 78 % (42-75) H 10/11/16 12:20 Band Neutrophils % 1 % (0-2) 10/11/16 12:20 Lymphocytes % (Manual) 9 % (20-50) L 10/11/16 12:20 Monocytes % (Manual) 12 % (0-10) H 10/11/16 12:20 Platelet Estimate Normal (NORMAL) 10/11/16 12:20 Large Platelets Present 10/11/16 12:20 Anisocytosis (manual) Slight 10/11/16 12:20 PT 12.9 Seconds (9.8-13.1) 10/11/16 12:20 INR 1.3 (0.9-1.2) H 10/11/16 12:20 APTT 35.7 Seconds (25.6-37.1) 10/11/16 12:20 pO2 30 mm/Hg (30-55) 10/11/16 12:47 VBG pH 7.42 (7.32-7.43) 10/11/16 12:47 VBG pCO2 36 mmHg (40-60) L 10/11/16 12:47 VBG HCO3 23.3 mmol/L 10/11/16 12:47 VBG Total CO2 24.5 mmol/L (22-28) 10/11/16 12:47 VBG O2 Sat (Calc) 65.3 % (40-65) H 10/11/16 12:47 VBG Base Excess -0.7 mmol/L (0.0-2.0) L 10/11/16 12:47 VBG Potassium 3.6 mmol/L (3.6-5.2) 10/11/16 12:47 Sodium 136.0 mmol/L (132-148) 10/11/16 12:47 Chloride 107.0 mmol/L (98-107) 10/11/16 12:47 Glucose 99 mg/dL (65-105) 10/11/16 12:47 Lactate 1.0 mmol/L (0.7-2.1) 10/11/16 12:47 FiO2 21.0 % 10/11/16 12:47 Sodium 141 mmol/l (132-148) 10/15/16 05:15 Potassium 4.0 MMOL/L (3.6-5.0) 10/15/16 05:15 Chloride 106 mmol/L (98-107) 10/15/16 05:15 Carbon Dioxide 24 mmol/L (22-30) 10/15/16 05:15 Anion Gap 15 (10-20) 10/15/16 05:15 BUN 12 mg/dl (7-17) 10/15/16 05:15 Creatinine 0.6 mg/dL (0.7-1.2) L 10/15/16 05:15 Est GFR ( Amer) > 60 10/15/16 05:15 Est GFR (Non-Af Amer) > 60 10/15/16 05:15 Random Glucose 92 mg/dL (65-105) 10/15/16 05:15 Calcium 8.8 mg/dL (8.4-10.2) 10/15/16 05:15 Iron 11 ug/dL (37-170) L 10/13/16 10:01 TIBC 235 ug/dL (250-450) L 10/13/16 10:01 % Saturation 5 % (20-55) L 10/13/16 10:01 Ferritin 153.0 ng/mL 10/13/16 10:01 Total Bilirubin 0.3 mg/dl (0.2-1.3) 10/14/16 05:05 AST 63 U/L (14-36) H 10/14/16 05:05 ALT 84 U/L (9-52) H 10/14/16 05:05 Alkaline Phosphatase 154 U/L (38-126) H 10/14/16 05:05 Total Protein 6.3 G/DL (6.3-8.2) 10/14/16 05:05 Albumin 3.0 g/dL (3.5-5.0) L 10/14/16 05:05 Globulin 3.3 gm/dL (2.2-3.9) 10/14/16 05:05 Albumin/Globulin Ratio 0.9 (1.0-2.1) L 10/14/16 05:05 Vitamin B12 824 pg/mL (239-931) 10/13/16 10:01 Folate 6.9 ng/mL 10/13/16 10:01 Venous Blood Potassium 3.6 mmol/L (3.6-5.2) 10/11/16 12:47 Urine Color Milagros (YELLOW) 10/11/16 12:20 Urine Clarity Cloudy (Clear) 10/11/16 12:20 Urine pH 6.0 (5.0-8.0) 10/11/16 12:20 Ur Specific [place] 1.018 (1.003-1.030) 10/11/16 12:20 Urine Protein 100 mg/dL (NEGATIVE) 10/11/16 12:20 Urine Glucose (UA) Neg mg/dL (Normal) 10/11/16 12:20 Urine Ketones 20 mg/dL (NEGATIVE) 10/11/16 12:20 Urine Blood Small (NEGATIVE) 10/11/16 12:20 Urine Nitrate Negative (NEGATIVE) 10/11/16 12:20 Urine Bilirubin Negative (NEGATIVE) 10/11/16 12:20 Urine Urobilinogen 0.2-1.0 mg/dL (0.2-1.0) 10/11/16 12:20 Ur Leukocyte Esterase Mod Mai/uL (Negative) 10/11/16 12:20 Urine RBC (Auto) 4 /hpf (0-3) H 10/11/16 12:20 Urine Microscopic WBC 274 /hpf (0-5) H 10/11/16 12:20 Ur Squamous Epith Cells 2 /hpf (0-5) 10/11/16 12:20 Urine Bacteria Occ (<OCC) H 10/11/16 12:20 Fluid Type Spinal fluid 10/11/16 17:10 CSF Volume 2 mL (0-1) H 10/11/16 17:10 CSF Appearance Clear/colorless (CLEAR) 10/11/16 17:10 CSF WBC 0.0 /mm3 (0.0-5.0) 10/11/16 17:10 CSF RBC 1.0 /mm3 (0.0-0.0) H 10/11/16 17:10 CSF Total Cell Counted TEST NOT PERFORMED 10/11/16 17:10 CSF Neutrophils 0 % (0-0) 10/11/16 17:10 CSF Lymphocytes 0.0 % (0-0) 10/11/16 17:10 CSF Monos/Macrophages 0 % (0-0) 10/11/16 17:10 CSF Comment TEST NOT PERFORMED 10/11/16 17:10 CSF Glucose 47 mg/dL (40-70) 10/11/16 17:10 CSF Total Protein 14.0 mg/dL (12-60) 10/11/16 17:10 Stool Occult Blood Negative (NEGATIVE) 10/13/16 11:11 Hepatitis A IgM Ab Nonreactive (Nonreactive) 10/12/16 12:40 Hepatitis A Ab Total Reactive (Nonreactive) H 10/12/16 12:40 Hep Bs Antigen Negative (NEGATIVE) 10/12/16 12:40 Hep Bs Antibody Negative (NEGATIVE) 10/12/16 12:40 Hep B Core IgM Ab Negative (NEGATIVE) 10/12/16 12:40 Hepatitis C Antibody Negative (NEGATIVE) 10/12/16 12:40 Infectious Crane Assay Negative (NEGATIVE) 10/14/16 18:01 H.influenzae Type B Ag Negative (NEGATIVE) 10/14/16 Unknown N.meningitidis ACY/W135 Negative (NEGATIVE) 10/14/16 Unknown N.meningi B/E.coli K1 Ag Negative (NEGATIVE) 10/14/16 Unknown Group B Strep Antigen Negative (NEGATIVE) 10/14/16 Unknown S. pneumoniae Antigen Negative (NEGATIVE) 10/14/16 Unknown Discharge Exam - Head Exam Head Exam: ATRAUMATIC, NORMOCEPHALIC - Eye Exam Eye Exam: Normal appearance - ENT Exam ENT Exam: Mucous Membranes Moist - Respiratory Exam Respiratory Exam: Clear to PA & Lateral, NORMAL BREATHING PATTERN - Cardiovascular Exam Cardiovascular Exam: REGULAR RHYTHM, +S1, +S2 - GI/Abdominal Exam GI & Abdominal Exam: Normal Bowel Sounds, Soft. absent: Distended, Firm, Guarding, Tenderness - Extremities Exam Extremities exam: normal inspection Additional comments: no calves tenderness, no edema - Back Exam Back exam: NORMAL INSPECTION. absent: CVA tenderness (L), CVA tenderness (R) - Neurological Exam Neurological exam: Alert, CN II-XII Intact, Oriented x3 - Psychiatric Exam Psychiatric exam: Normal Affect, Normal Mood - Skin Skin Exam: Dry, Intact, Normal Color Discharge Plan - Discharge Medications Prescriptions: Acetaminophen/Butalbital/Caf [Fioricet] 1 tab PO Q4 PRN #20 tab PRN Reason: Headache Cefuroxime Axetil [Cefuroxime] 500 mg PO BID #14 tablet Ferrous Sulfate [Feosol] 325 mg PO BID #60 tab Gabapentin [Neurontin] 100 mg PO HS #30 cap Pantoprazole [Protonix EC Tab] 40 mg PO DAILY #30 ect valACYclovir [Valtrex] 500 mg PO BID #14 tab - Follow Up Plan Condition: STABLE Disposition: HOME/ ROUTINE Patient education suggested?: Yes Additional Instructions: patient cleared for discharge to Home today by , and Rx for all meds provided pt. will f/u with in 1 week Referrals: Faraz Childress MD [Staff Provider] -
[2016-10-16 11:36] LABS: EPSTEIN-BARR VCA AB IGG >750.00 U/mL; EPSTEIN-BARR VCA AB IGM <36.00 U/mL
[2016-10-16 18:06] LABS: SPECIMEN SOURCE CSF
[2016-10-18 17:46] LABS: TOTAL PROTEIN, CSF 15 mg/dL (15-45)
[2016-10-19 16:42] LABS: CSF ALBUMIN 48.3 % (51.9-67.8); CSF ALPHA-1-GLOBULIN 3.3 % (1.8-6.5); CSF ALPHA-2-GLOBULIN 6.9 % (4.6-10.8); CSF BETA GLOBULIN 15.6 % (7.8-18.2); CSF GAMMA GLOBULIN 16.2 % (4.8-17.6); CSF PRE-ALBUMIN 9.8 % (1.3-6.9)
[2016-10-20 20:27] LABS: EBV EA (D) AB IgG <9.00 U/mL (<9.00)
== END 2016-10-15 13:53 | disposition home or self-care (01) | DRG 866 ==
LOC: H.ER 11:32 → H.EROBSV 17:00 → OBSVTOIN 18:41 → H.ERHOLD 18:41 → H.TEL 21:17
PROVIDERS: ADMIT Family Medicine; ATTEND Family Medicine
PROC: 009U3ZX Drainage of Spinal Canal, Percutaneous Approach, Diagnostic (ICD-10-PCS; principal; 2016-10-11)
DX: B34.9 Viral infection, unspecified (principal); N39.0 Urinary tract infection, site not specified; B96.20 Unspecified Escherichia coli [E. coli] as the cause of diseases classified elsewhere; G44.209 Tension-type headache, unspecified, not intractable; G43.809 Other migraine, not intractable, without status migrainosus; M47.896 Other spondylosis, lumbar region; M51.26 Other intervertebral disc displacement, lumbar region; E86.0 Dehydration

== ENCOUNTER 2017-05-11 08:39 | Day surgery (SDC) | payer OTHER ==
[2017-05-11] MEDS ORDERED: Lactated Ringer's 500 ML IV ONE (11:25)
[2017-05-11] MEDS ORDERED: Lidocaine PF 2% (5 ml) Inj (For Cardiac Arrhy) IV ONE (11:32)
[2017-05-11] MEDS ORDERED: Propofol 10 mg/ml Inj (20 ML) ONE (11:32)
[2017-05-11] MEDS ORDERED: Midazolam 2 MG/2 ML VIAL ONE (11:32)
[2017-05-11 12:21] VITALS: BP 101/66; PULSE 86; RESP 16; TEMP 98; O2SAT 100
== END 2017-05-11 12:22 | disposition home or self-care (01) ==
LOC: H.ENDO 08:39
PROVIDERS: ATTEND Internal Medicine Gastroenterology
DX: K30 Functional dyspepsia (principal); K29.50 Unspecified chronic gastritis without bleeding; K21.9 Gastro-esophageal reflux disease without esophagitis; K31.9 Disease of stomach and duodenum, unspecified
CPT/HCPCS: 43239; 88305; J2250; J2704; J7120

== ENCOUNTER 2018-06-02 09:49 | Emergency (ER) | payer OTHER ==
[2018-06-02 09:53] VITALS: BMI 29.5
[2018-06-02] MEDS ORDERED: Oxycodone/Acetaminophen 5/325 mg Tab PO STA (10:19)
[2018-06-02] MEDS ORDERED: Oxycodone/Acetaminophen 5/325 mg Tab ONE (10:25)
--- NOTE | 2018-06-02 10:38 | ED PDOC ---
HPI: Headache Time Seen by Provider: 06/02/18 10:08 Chief Complaint (Nursing): Headache Chief Complaint (Provider): Headache History Per: Patient, Equine Intern ([id number]) History/Exam Limitations: no limitations Onset/Duration Of Symptoms: Days Current Symptoms Are (Timing): Constant Additional Complaint(s): 37 year old female with no past medical history who is presenting to the ED for evaluation of sharp constant posterior neck and head pain radiating to the front of the head ongoing for 2 weeks. Patient states that she went to the doctor who gave her a prescription for Magnesium and Sumatriptan with minimal to no relief in symptoms. She admits that pain is worse with movement of the head and denies any fevers, chest pain, or shortness of breath. PMD: Dr. Childress Past Medical History Reviewed: Historical Data, Nursing Documentation, Vital Signs Vital Signs: Last Vital Signs Temp 98.5 F 06/02/18 09:52 Pulse 71 06/02/18 09:52 Resp 16 06/02/18 09:52 BP 115/81 06/02/18 09:52 Pulse Ox 100 06/02/18 09:52 - Medical History PMH: No Chronic Diseases Denies: Chronic Kidney Disease - Surgical History Other surgeries: Tubal Ligation - Family History Family History: States: Unknown Family Hx - Social History Current smoker - smoking cessation education provided: No Alcohol: None Drugs: Denies - Immunization History Hx Tetanus Toxoid Vaccination: No Hx Influenza Vaccination: No Hx Pneumococcal Vaccination: No - Home Medications Home Medications: Ambulatory Orders Medication Instructions Recorded No Known Home Med 05/11/17 - Allergies Allergies/Adverse Reactions: Allergies Allergy/AdvReac Type Severity Reaction Status Date / Time No Known Allergies Allergy Verified 05/11/17 11:23 Review of Systems ROS Statement: Except As Marked, All Systems Reviewed And Found Negative Constitutional: Negative for: Fever Cardiovascular: Negative for: Chest Pain Respiratory: Negative for: Shortness of Breath Musculoskeletal: Positive for: Neck Pain Neurological: Positive for: Headache Physical Exam - Reviewed Nursing Documentation Reviewed: Yes Vital Signs Reviewed: Yes - Physical Exam Appears: Positive for: Non-toxic, No Acute Distress Head Exam: Positive for: ATRAUMATIC, NORMAL INSPECTION, NORMOCEPHALIC Skin: Positive for: Normal Color, Warm, DRY Eye Exam: Positive for: EOMI, Normal appearance, PERRL ENT: Positive for: Normal ENT Inspection Neck: Positive for: Normal (but with tenderness to superior cervical spine, full ROM) Cardiovascular/Chest: Positive for: Regular Rate, Rhythm. Negative for: Murmur Respiratory: Positive for: Normal Breath Sounds. Negative for: Respiratory Distress Gastrointestinal/Abdominal: Positive for: Normal Exam, Soft. Negative for: Tenderness Extremity: Positive for: Normal ROM. Negative for: Deformity, Swelling Neurological/Psych: Positive for: Awake, Alert, Normal Tone, Oriented. Negative for: Motor/Sensory Deficits - ECG O2 Sat by Pulse Oximetry: 100 (RA) Pulse Ox Interpretation: Normal Medical Decision Making Medical Decision Making: Time: 10:18 Plan: --CT Cervical spine --CT Head --Percocet 1 tab PO Accession No. : [id number] Patient Name / ID : DUNIA SHRESTHA / [id number] Exam Date : 06/02/2018 11:57:32 ( Approved ) Study Comment : Sex / Age : F / 37Y Creator : aminata guillen Dictator : Coreen Boudreaux Branch Service Leader : [employer] Tax Preparer : Coreen Boudreaux Approver2 : Report Date : 06/02/2018 12:23:52 My Comment : Date of service: 06/02/2018 PROCEDURE: CT HEAD WITHOUT CONTRAST. HISTORY: SHEPPARD COMPARISON: 10/11/2016 TECHNIQUE: Axial computed tomography images were obtained through the head/brain without intravenous contrast. Radiation dose: Total exam DLP = 689.86 mGy-cm. This CT exam was performed using one or more of the following dose reduction techniques: Automated exposure control, adjustment of the mA and/or kV according to patient size, and/or use of iterative reconstruction technique. FINDINGS: HEMORRHAGE: No intracranial hemorrhage. BRAIN: No mass effect or edema. No atrophy or chronic microvascular ischemic changes. The previously referenced calcification perhaps 2 contiguous coarse calcifications measuring in total 7.6 x 4.3 cm on current coronal series 601, image 53 is similar in appearance is borders the superior cerebellar tentorium. Within the right parietal occipital watershed estimated zone. It is unchanged. No interval pathology noted. VENTRICLES: Unremarkable. No hydrocephalus. CALVARIUM: Unremarkable. PARANASAL SINUSES: Unremarkable as visualized. No significant inflammatory changes. MASTOID AIR CELLS: Unremarkable as visualized. No inflammatory changes. OTHER FINDINGS: None. IMPRESSION: No interval pathology appreciated. The course apparently 2 contiguous clump like calcifications bordering just above the right tentorium is stable in appearance with the 10/11/2016 study. No surrounding edema here seen. Prior infectious forward/inflammatory / posttraumatic sequela as mentioned previously are some considerations. Correlate clinically. Accession No. : [id number] Patient Name / ID : DUNIA SHRESTHA / [id number] Exam Date : 06/02/2018 11:59:51 ( Approved ) Study Comment : Sex / Age : F / 37Y Creator : aminata guillen Dictator : Coreen Boudreaux Branch Service Leader : Corporate Tax Preparer : Coreen Boudreaux Approver2 : Report Date : 06/02/2018 12:23:51 My Comment : Date of service: 06/02/2018 PROCEDURE: CT Cervical Spine without contrast HISTORY: Superior neck pain COMPARISON: None available. TECHNIQUE: Axial computed tomography images were obtained of the cervical spine without the use of intravenous contrast. Coronal and sagittal reformatted images were created and reviewed. Radiation dose: Total exam DLP = 0.0 mGy-cm. This CT exam was performed using one or more of the following dose reduction techniques: Automated exposure control, adjustment of the mA and/or kV according to patient size, and/or use of iterative reconstruction technique. FINDINGS: VERTEBRAE: No fracture. Normal alignment. No destructive bony lesion. DISCS/SPINAL CANAL/NEURAL FORAMINA: No significant central canal or neural foraminal stenosis. Discs heights are grossly preserved. PARASPINAL SOFT TISSUES: Unremarkable. OTHER FINDINGS: Few tiny 2 mm hypodensities nonspecific in the right thyroid lobe are noted. IMPRESSION: No fracture or subluxation. Incidental tiny 2 mm hypodensities nonspecific in the right thyroid lobe. Benign etiology favored. 14:00 Case discussed with Ross Puentes NP, agrees with discharge home. Scribe Attestation: Documented by Hyacinth Julien, acting as a scribe for Vira Donnelly MD. Provider Scribe Attestation: All medical record entries made by the Scribe were at my direction and personally dictated by me. I have reviewed the chart and agree that the record accurately reflects my personal performance of the history, physical exam, medical decision making, and the department course for this patient. I have also personally directed, reviewed, and agree with the discharge instructions and disposition. Disposition - Clinical Impression Clinical Impression: Acute headache - Disposition Referrals: Faraz Childress MD [Staff Provider] - Disposition: Routine/Home Disposition Time: 14:00 Condition: IMPROVED Additional Instructions: CONTINUE CURRENT MEDICATIONS. Instructions: Headache, Adult Forms: [employer] (Lithuanian) Print Language: GUATEMALAN
--- NOTE | 2018-06-02 12:42 | CT ---
Date of service: 06/02/2018 PROCEDURE: CT HEAD WITHOUT CONTRAST. HISTORY: SHEPPARD COMPARISON: 10/11/2016 TECHNIQUE: Axial computed tomography images were obtained through the head/brain without intravenous contrast. Radiation dose: Total exam DLP = 689.86 mGy-cm. This CT exam was performed using one or more of the following dose reduction techniques: Automated exposure control, adjustment of the mA and/or kV according to patient size, and/or use of iterative reconstruction technique. FINDINGS: HEMORRHAGE: No intracranial hemorrhage. BRAIN: No mass effect or edema. No atrophy or chronic microvascular ischemic changes. The previously referenced calcification perhaps 2 contiguous coarse calcifications measuring in total 7.6 x 4.3 cm on current coronal series 601, image 53 is similar in appearance is borders the superior cerebellar tentorium. Within the right parietal occipital watershed estimated zone. It is unchanged. No interval pathology noted. VENTRICLES: Unremarkable. No hydrocephalus. CALVARIUM: Unremarkable. PARANASAL SINUSES: Unremarkable as visualized. No significant inflammatory changes. MASTOID AIR CELLS: Unremarkable as visualized. No inflammatory changes. OTHER FINDINGS: None. IMPRESSION: No interval pathology appreciated. The course apparently 2 contiguous clump like calcifications bordering just above the right tentorium is stable in appearance with the 10/11/2016 study. No surrounding edema here seen. Prior infectious forward/inflammatory / posttraumatic sequela as mentioned previously are some considerations. Correlate clinically.
--- NOTE | 2018-06-02 12:44 | CT ---
Date of service: 06/02/2018 PROCEDURE: CT Cervical Spine without contrast HISTORY: Superior neck pain COMPARISON: None available. TECHNIQUE: Axial computed tomography images were obtained of the cervical spine without the use of intravenous contrast. Coronal and sagittal reformatted images were created and reviewed. Radiation dose: Total exam DLP = 0.0 mGy-cm. This CT exam was performed using one or more of the following dose reduction techniques: Automated exposure control, adjustment of the mA and/or kV according to patient size, and/or use of iterative reconstruction technique. FINDINGS: VERTEBRAE: No fracture. Normal alignment. No destructive bony lesion. DISCS/SPINAL CANAL/NEURAL FORAMINA: No significant central canal or neural foraminal stenosis. Discs heights are grossly preserved. PARASPINAL SOFT TISSUES: Unremarkable. OTHER FINDINGS: Few tiny 2 mm hypodensities nonspecific in the right thyroid lobe are noted. IMPRESSION: No fracture or subluxation. Incidental tiny 2 mm hypodensities nonspecific in the right thyroid lobe. Benign etiology favored.
[2018-06-02 14:13] VITALS: BP 110/78; PULSE 76; RESP 19; TEMP 97.6
[2018-06-02 15:50] VITALS: O2SAT 100
== END 2018-06-02 14:13 | disposition home or self-care (01) ==
LOC: H.ER 09:49
DX: R51 Headache (principal)